=== PATIENT | male | born 1965 | race Caucasian/White ===

== ENCOUNTER 2025-05-31 17:56 | Emergency (ER) | payer OTHER, SELFPAY ==
[2025-05-31 18:02] VITALS: BP 148/90; PULSE 90; TEMP 36.8; O2SAT 99; BMI 30.3
--- NOTE | 2025-05-31 18:09 | ED.LOWEXI1 ---
HPI HPI - Extremity Injury (Lower) General Chief Complaint: Extremity Injury, Lower Stated Complaint: FELL OFF LADDER HURT LEFT KNEE Time Seen by Provider: 05/31/25 17:58 Source: patient Mode of arrival: walk-in Limitations: no limitations History of Present Illness HPI Narrative: Patient is a 59-year-old male presents to the ER for evaluation of left knee pain. Patient states yesterday he was climbing down off a ladder holding tools when he missed approximately 3 rungs from the bottom landing on his leg but causing a twisting buckling force to his left knee. He denies the knee striking the ground. No skin injury. He denies any head or neck injury. Patient states pain is in the joint. But more posterior. No obvious bruising. 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 He appears nontoxic in no acute distress and ambulates well partial weightbearing with a crutch today in the ER. There is been no recent fever or illness. Patient states he does not see a family doctor for yearly checks. MD complaint: Reports knee injury Injury: Left: knee (twisting, impact) Place: Reports home Severity: moderate Relieving factors: Reports rest Exacerbating factors: Reports weight bearing and movement Associated symptoms: Denies numbness Other symptoms: Reports none Related Data Previous Rx's ?Medication ?Instructions ?Recorded prednisone 20 mg tablet 40 mg (2 x 20 mg) PO DAILY 5 days 05/31/25 #10 tabs Allergies Allergy/AdvReac Type Severity Reaction Status Date / Time No Known Drug Allergies Allergy Verified 05/31/25 18:02 Review of Systems ROS Constitutional Denies: fever, chills or change in weight Eyes Denies: change in vision Ears, nose, mouth, and throat Denies: throat pain, neck pain or throat swelling Cardiovascular Denies: chest pain Respiratory Denies: shortness of breath or cough Gastrointestinal Denies: abdominal pain or nausea Musculoskeletal Reports: joint pain (left knee) Neurological Denies: headache or numbness in extremities Psychiatric Denies: anxiety or mood swings PFSH PFSH Social History Little interest or pleasure in doing things: not at all Feeling down, depressed, or hopeless: not at all Exam Narrative Exam Narrative: Vital signs reviewed and nurse's notes. The patient is not hypoxic. General: Alert, no acute distress, patient resting comfortably Skin: warm, intact, no pallor noted Head: Normocephalic, atraumatic Eye: Normal conjunctiva, no exudates Respiratory: No acute distress, lungs CTA Musculoskeletal: No evidence of deformity to the left knee. There is minimal amount of swelling consistent with effusion.. There is no ecchymosis. No erythema or warmth noted. DP and PT pulses are intact 2+. Normal sensation, normal capillary refill less than 2 seconds. There is no cyanosis or mottling noted. The patient has no pain on direct palpation. States he notes pain more with weightbearing. Mild patellofemoral crepitus with terminal flexion and motion. The patient has no laxity with varus or valgus stressing. The patient has negative anterior drawer and Carrie testing. All symmetric to right knee in comparison. neg [place] medial and lateral. The patient was able to flex and extend although with some mild pain. Patient was able to extend leg off the cart without difficulty. SLR intact, No tenderness noted to the 5th MT, midfoot, ankle or proximal fibular area. There is no pain with calcaneus achilles tendon is intact and no defect is palpated. The patient has no pelvic instability. The patient has no shortening or rotation noted to the bilateral lower extremities. Neurological: alert and orient x4, normal sensory and motor observed. Psychiatric: Cooperative Constitutional Vital Signs, click to edit/add: Last Vital Signs Temp 98.3 F 05/31/25 18:02 Pulse 90 05/31/25 18:02 Resp 18 05/31/25 18:02 BP 148/90 H 05/31/25 18:02 Pulse Ox 99 05/31/25 18:02 O2 Del Method Room Air 05/31/25 18:02 Course Vital Signs Vital signs: Vital Signs Temperature 98.3 F 05/31/25 18:02 Pulse Rate 90 05/31/25 18:02 Respiratory Rate 18 05/31/25 18:02 Blood Pressure 148/90 H 05/31/25 18:02 Pulse Oximetry 99 05/31/25 18:02 Oxygen Delivery Method Room Air 05/31/25 18:02 Temperature 98.3 F 05/31/25 18:02 Pulse Rate 90 05/31/25 18:02 Respiratory Rate 18 05/31/25 18:02 Blood Pressure 148/90 H 05/31/25 18:02 Pulse Oximetry 99 10/12/25 18:02 Oxygen Delivery Method Room Air 05/31/25 18:02 MDM - Extremity Injury (Lower) MDM Narrative Medical decision making narrative: Patient had a fall from ladder but landed on his feet describes a twisting/impact type injury to his knee. 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 X-rays reviewed no evidence of displaced fracture mild patellofemoral and medial joint line arthritic changes joint space preservation still noted. Negative Radha's today on exam no ligamentous plane or instability. Trace effusion patient will be placed on prednisone with risks and benefits discussed for inflammation. We discussed possibility of chondral contusion and to avoid any impact or high impact activity. Recommend contacting orthopedics tomorrow for follow-up later in the week. Given patient's age and activity use we strongly recommend a follow-up to her family physician for general wellness screenings. The patient is to followup with primary care physician in next 2-3 days or to return to the emergency department should any of the signs or symptoms worsen or new symptoms develop. Patient had questions answered. The patient agrees with the following Diagnosis and Treatment plan and the patient will be discharged home. Differential Diagnosis Differential diagnosis: Likely acute internal derangement of knee and other (knee fracture, chondral contusion. infectious arthropathy not suspected. ) Imaging Data Left knee 4 view:: Attestation: I personally reviewed and interpreted this imaging study as follows: My impression: 4 view left knee x-ray standing shows slight narrowing medial joint line mild flattening of the articular surface with subchondral sclerosis, no obvious fracture or dislocation. Mild effusion and mild patellofemoral degenerative changes. Impression: no acute bony process left knee (radiologist interpretation pending) Discharge Plan Discharge Chief Complaint: Extremity Injury, Lower Clinical Impression: Acute pain of left knee, Strain of left knee Patient Disposition: Home, Self-Care Time of Disposition Decision: 18:33 Condition: Good Prescriptions / Home Meds: New prednisone 20 mg tablet 40 mg PO DAILY 5 Days Qty: 10 0RF Print Language: Citizen Of [place] Instructions: Knee Pain (ED) Additional Instructions: Recommend ice and elevation when not working. Josiah wrap if up for more than 10 minutes for compression. It is strongly recommended that you establish care with a family physician for wellness screenings. You may call orthopedics tomorrow for an appointment later in the week for reevaluation. Return to the ER if symptoms worsen or new symptoms develop Referrals: Enio Lipscomb DO [Physician, Orthopedics] - As soon as possible SHABBIR HUBER [Nurse Practitioner, Family Practice] - 1 week
--- NOTE | 2025-05-31 18:14 | XR_ITS ---
[facility] [place] [id number] Patient Name: PHYLLIS HARRIS MRN: [id number] date: 1965 Sex: M Assigned Patient Location: ER Current Patient Location: ED.MAIN Accession/Order Number: [id number] Exam Date: 05/31/2025 18:25 Report Date: 05/31/2025 19:01 At the request of: CELI GARLAND Procedure: XR knee LT 4V Left knee 4 views CLINICAL HISTORY: pain s/p fall COMPARISON: None FINDINGS: Small joint effusion. 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 Otherwise no fracture dislocation identified. Mildly medial compartment joint space narrowing. XR/XR knee LT 4V IMPRESSION: Small joint effusion. 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 Otherwise negative acute fracture Impression dictated by: Rakan Womack M.D. 05/31/2025 7:01 PM Dictation Location: [place] [id number] Electronically authenticated by: [id number] Y Date: 05/31/2025 19:01
[2025-05-31] MEDS: KETOROLAC TROMETHAMINE 60 MG/2 ML VIAL IM (18:35)
[2025-05-31] MEDS: PREDNISONE 20 MG TABLET 40 MG PO (18:35)
== END 2025-05-31 18:45 | disposition home or self-care (01) ==
PROVIDERS: Emergency Provider Emergency Medicine
DX: S86.812A Strain of other muscle(s) and tendon(s) at lower leg level, left leg, initial encounter (principal); W11.XXXA Fall on and from ladder, initial encounter; M25.562 Pain in left knee
CPT/HCPCS: 73564; 96372; 99284; J1885; J7512